=== PATIENT | male | born 1975 | race African-American/Black ===

== ENCOUNTER 2016-08-15 16:39 | Emergency (ER) | payer OTHER | END 2016-08-15 17:15 | disposition left against medical advice (07) | LOC: FER 16:39 | DX: T40.2X1A Poisoning by other opioids, accidental (unintentional), initial encounter (principal); F11.10 Opioid abuse, uncomplicated; F17.200 Nicotine dependence, unspecified, uncomplicated | CPT/HCPCS: 99284 ==

== ENCOUNTER 2016-09-13 12:14 | Emergency (ER) | payer OTHER ==
[2016-09-13 13:38] LABS: BASOPHIL 0.1 % (0-2); EOSINOPHIL 0 % (0-5); HCT 47.1 % (42.0-52.0); HGB 15.9 g/dl (13.2-18.0); MCH 31.4 pg (25.0-31.0); MCHC 33.8 g/dL (32.0-36.0); MCV 93.1 fL (78.0-100.0); MONOCYTE 5.6 % (0-12); NEUTROPHIL 89.3 % (41-80); PLT 253 K/uL (150-400); RBC 5.06 M/uL (4.70-6.00)
[2016-09-13 13:59] LABS: ALBUMIN 4.6 g/dL (3.5-5.0); BILIRUBIN - TOTAL 0.6 mg/dL (0.1-1.0); CREATININE 1.6 mg/dL (0.7-1.2); GLOBULIN (CALCULATION) 3.1 g/dL (2.2-4.2); TOTAL PROTEIN 7.7 g/dL (6.4-8.3)
[2016-09-13 14:00] LABS: ACETAMINOPHEN (TYLENOL) < 5.0 ug/mL (10.0-30.0); ALCOHOL (ETOH) MEDICAL NONE DETECTED; SALICYLATE < 6 ug/mL (0-300)
[2016-09-13 14:40] LABS: BILIRUBIN NEGATIVE (NEGATIVE); BLOOD TRACE-INTACT Ery/uL (NEGATIVE); CLARITY CLEAR (CLEAR); COLOR YELLOW (YELLOW); GLUCOSE (U) 3+ mg/dL (NORMAL); KETONE (U) NEGATIVE (NEGATIVE); LEUKOCYTES NEGATIVE Leu/uL (NEGATIVE); NITRITE NEGATIVE (NEGATIVE); PROTEIN 1+ mg/dL (NEGATIVE); SPECIFIC GRAVITY 1.025 (1.001-1.030); UROBILINOGEN 0.2 mg/dL (0.2-1.0)
[2016-09-13 14:47] LABS: BACTERIA TRACE; SQUAMOUS EPITHELIAL CELLS RARE
[2016-09-13 14:52] LABS: BENZODIAZEPINES NEGATIVE (NEGATIVE); COCAINE POSITIVE (NEGATIVE)
[2016-09-13 14:53] LABS: AMPHETAMINES NEGATIVE (NEGATIVE); BARBITURATES NEGATIVE (NEGATIVE); MARIJUANA (THC) POSITIVE (NEGATIVE); METHADONE NEGATIVE (NEGATIVE); TRICYCLIC ANTIDEPRESSANT NEGATIVE (NEGATIVE)
== END 2016-09-13 18:27 | disposition other institution (70) ==
LOC: FER 12:14
PROVIDERS: Internal Medicine
DX: T40.1X2A Poisoning by heroin, intentional self-harm, initial encounter (principal); F11.10 Opioid abuse, uncomplicated; F14.10 Cocaine abuse, uncomplicated; F12.10 Cannabis abuse, uncomplicated; F32.9 Major depressive disorder, single episode, unspecified
CPT/HCPCS: 36415; 71020; 80053; 80305; 81001; 84484; 85025; 93005; G0480

== ENCOUNTER 2016-10-25 12:26 | Emergency (ER) | payer OTHER | END 2016-10-25 13:34 | disposition home or self-care (01) | LOC: FER 12:26 | DX: S63.91XA Sprain of unspecified part of right wrist and hand, initial encounter (principal) | CPT/HCPCS: 73130; 99283 ==

== ENCOUNTER → 2022-03-08 | Day surgery (SDC) | payer OTHER ==
[~2022-03-08] VITALS: Ht 180.3 cm; Wt 93.5 kg
[~2022-03-08] MED LIST: BACLOFEN 10MG T10 MG PO; DAILY VALUE1 EACH PO; NAPROXEN500 MG PO
== END | disposition home or self-care (01) ==
LOC: FAS 09:25
DX: Z12.11 Encounter for screening for malignant neoplasm of colon (principal); D12.3 Benign neoplasm of transverse colon; M19.90 Unspecified osteoarthritis, unspecified site; F17.210 Nicotine dependence, cigarettes, uncomplicated; Z72.89 Other problems related to lifestyle; Z88.6 Allergy status to analgesic agent
CPT/HCPCS: J2250; J2704; J7120